=== PATIENT | female | born 2000 | race Caucasian/White ===

== ENCOUNTER 2021-02-11 19:32 | Emergency (ER) | payer OTHER ==
[~2021-02-11 19:32] MED LIST: COLACE 100MG C100 MG PO; IBUPROFEN600 MG PO; KEFLEX CAP 500500 MG PO; LODINE CAP 300300 MG PO; LORTAB 5-325 M1 EACH PO; PRENATAL VITAM1 EAC5 PO
[2021-02-11] MEDS ORDERED: CLEOCIN HCL150 MG PO (22:08)
== END 2021-02-11 22:25 | disposition home or self-care (01) ==
LOC: ER1 19:32
DX: L03.211 Cellulitis of face (principal); F17.210 Nicotine dependence, cigarettes, uncomplicated; Z88.1 Allergy status to other antibiotic agents; Z86.14 Personal history of Methicillin resistant Staphylococcus aureus infection
CPT/HCPCS: 99283

== ENCOUNTER 2021-05-20 17:00 | Emergency (ER) | payer OTHER ==
[~2021-05-20 17:00] MED LIST changes: +CLEOCIN HCL150 MG PO
== END 2021-05-20 20:11 | disposition home or self-care (01) ==
LOC: ER1 17:00
DX: R05 Cough (principal); Z20.822 Contact with and (suspected) exposure to COVID-19; F17.200 Nicotine dependence, unspecified, uncomplicated; Z88.1 Allergy status to other antibiotic agents
CPT/HCPCS: 71045; 99283; U0002